=== PATIENT | male | born 1995 | race African-American/Black ===

== ENCOUNTER 2017-07-15 06:36 | Emergency (ER) | payer SELFPAY ==
[~2017-07-15] VITALS: Ht 180.3 cm; Wt 75.0 kg
[2017-07-15 06:38] VITALS: BP 117/64; PULSE 100; RESP 16; TEMP 97.6; O2SAT 97
--- NOTE | 2017-07-15 06:51 | PD ---
HPI . Right leg laceration Chief Complaint: Injury Time Seen by Provider: 06:47 Travel History International Travel<30 days: No Contact w/Intl Traveler<30days: No Traveled to known affect area: No History of Present Illness HPI Patient presents with chief complaint of right leg laceration. The patient reports that the accident happened just prior to presentation. He states that his tetanus shot is up-to-date. He is not having any difficulty ambulating on his leg. No modifying factors. [facility] Social History Tobacco Use: No Allergies-Medications (Allergen,Severity, Reaction): Coded Allergies: No Known Allergies (Unverified , 07/15/17) Review of Systems Except as stated in HPI: all other systems reviewed are Neg Skin: Positive Other (laceration) Physical Exam Narrative GENERAL: Awake and alert and in no acute distress. SKIN: Warm and dry. Large laceration on the right anterior lateral peck. It is about 6 cm in length and penetrates through muscle fascia. He is distally neurovascularly intact. HEAD: Atraumatic. Normocephalic. EYES: Pupils equal and round. NECK: Trachea midline. CARDIOVASCULAR: Regular rate and rhythm. RESPIRATORY: No accessory muscle use. MUSCULOSKELETAL: No obvious deformities. No edema. NEUROLOGICAL: Awake and alert. No obvious cranial nerve deficits. Motor grossly within normal limits. Normal speech. PSYCHIATRIC: Appropriate mood and affect; insight and judgment normal. Data Data Last Documented VS Vital Signs Date Time Temp Pulse Resp B/P Pulse Ox O2 Delivery O2 Flow Rate FiO2 07/15/17 06:38 97.6 100 16 117/64 97 Room Air MDM Medical Decision Making Medical Screen Exam Complete: Yes Emergency Medical Condition: Yes Differential Diagnosis Differential diagnosis includes but is not limited to skin laceration, muscular laceration, tendon laceration, neurovascular laceration. Narrative Course Patient presents with a large laceration to his right lower extremity. The wound will be repaired. Diagnosis Primary Impression: Laceration of right lower leg Qualified Code: S81.811A - Laceration of right lower leg, initial encounter Patient Instructions: General Instructions, Laceration (DC) Additional Instructions: Clean the wound twice daily with soap and water. Apply a thin layer of Neosporin ointment after you wash it. See your doctor in 10 days for suture removal. Seek care sooner for redness, drainage, warmth, unusual pain. Disposition: 01 DISCHARGE HOME Condition: Stable Akila Young MD Jul 15, 2017 06:51
[2017-07-15] MEDS ORDERED: LIDOCAINE 2%/EPINEPHrine 1:100,000 30ML MDV INFIL ONE (07:00)
[2017-07-15] MEDS ORDERED: LIDOCAINE 1%/EPINEPHrine 1:100,000 SOLN 30 ML VIAL ONE (07:06)
--- NOTE | 2017-07-15 07:24 | PD ---
Physical Exam Date Seen by Provider: Jul 15, 2017 Time Seen by Provider: 07:23 Narrative I was asked to repair the right leg laceration by Dr. Young. Please refer to her note for H&P Data Data Last Documented VS Vital Signs Date Time Temp Pulse Resp B/P Pulse Ox O2 Delivery O2 Flow Rate FiO2 07/15/17 06:38 97.6 100 16 117/64 97 Room Air Orders Lidocai-Epi 2%-1:100,000 Inj (Xylocaine- (07/15/17 07:00) Lidocai-Epi 1%-1:100,000 Inj (Xylocaine- (07/15/17 07:06) MDM Medical Record Reviewed: Yes Supervised Visit with DEVI: No Differential Diagnosis leg laceration Narrative Course Patient gave verbal consent to repair. There was a 6 cm laceration to the right lateral leg. The cut extends to the surface of the muscle and slightly penetrates the surface. There is no separation of muscle tissue for repair. His leg moves normally. Area was repaired with 12 mary. Patient tolerated without incident. We discussed wound care. Advised removal of mary 10-14 days in [place]. Patient verbalized understanding of instructions, questions were answered, and thanked me for their care. I advised them if their condition worsens, please return to the nearest emergency room for further care. Procedures Procedure Narrative LACERATION LOCATION: right lateral leg LENGTH: 6 NUMBER OF STITCHES/MARY: 12 REPAIR: The area of the laceration was prepped with Betadine and sterilely draped. The laceration was infiltrated with percent lidocaine. The wound was copiously irrigated and explored without evidence of foreign body, tendon injury or neurovascular injury. The wound was closed using 12 mary. This was a single layer repair. A sterile dressing was applied. The patient was advised to keep the dressing clean and dry. Patient tolerated the procedure well. Diagnosis Primary Impression: Laceration of right lower leg Qualified Code: S81.811A - Laceration of right lower leg, initial encounter Referrals: NO PRIMARY CARE PHYSICIAN (PCP) Patient Instructions: General Instructions, Laceration (DC) Departure Forms: Tests/Procedures Additional Instruction: Clean the wound twice daily with soap and water. Apply a thin layer of Neosporin ointment after you wash it. See your doctor in 10 days for staple removal. Seek care sooner for redness, drainage, warmth, unusual pain. 12 mary were placed. Disposition: 01 DISCHARGE HOME Condition: Stable Valeria Walsh Jul 15, 2017 07:24
[2017-07-15 07:50] VITALS: BP 120/72
== END 2017-07-15 07:51 | disposition home or self-care (01) ==
LOC: NEPE 06:36
DX: S81.811A Laceration without foreign body, right lower leg, initial encounter (principal); X58.XXXA Exposure to other specified factors, initial encounter
CPT/HCPCS: 12002